=== PATIENT | female | born 1940 | race Caucasian/White ===

== ENCOUNTER 2018-05-18 14:25 | Outpatient (CLI) | payer MEDICARE | END 2018-05-18 14:26 | disposition home or self-care (01) | LOC: BICMAMMO 14:25 | PROVIDERS: ATTEND Obstetrics & Gynecology | DX: Z12.31 Encounter for screening mammogram for malignant neoplasm of breast (principal); Z85.3 Personal history of malignant neoplasm of breast | CPT/HCPCS: 77063; 77067 ==

== ENCOUNTER 2020-06-10 13:30 | Outpatient (CLI) | payer MEDICARE ==
--- NOTE | 2020-06-10 14:36 | MMO ---
Bilateral MAMMO Bilat Screen [facility]. CLINICAL HISTORY: Patient is 79 years old and is seen for screening. The patient has the following family history of breast cancer: mother, at age 70, malignant (generic). The patient has a history of malignant (generic) at age 69. 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 VIEWS: The views performed were: bilateral craniocaudal with tomosynthesis and bilateral mediolateral oblique with tomosynthesis. FILMS COMPARED: The present examination has been compared to prior imaging studies performed at [facility] on 05/18/2018, and at [facility] on 02/18/2015, 02/19/2016 and 03/09/2017. This study has been interpreted with the assistance of computer-aided detection. MAMMOGRAM FINDINGS: There are scattered fibroglandular densities. There are stable post operative changes seen in the right breast. There are no suspicious masses, suspicious calcifications, or new areas of architectural distortion. IMPRESSION: THERE IS NO MAMMOGRAPHIC EVIDENCE OF MALIGNANCY. A ROUTINE FOLLOW-UP MAMMOGRAM IN 1 YEAR IS RECOMMENDED. THE RESULTS OF THIS EXAM WERE SENT TO THE PATIENT. ACR BI-RADS Category 2 - Benign finding MAMMOGRAPHY NOTE: 1. A negative mammogram report should not delay a biopsy if a dominant of clinically suspicious mass is present. 2. Approximately 10% to 15% of breast cancers are not detected by mammography. 3. Adenosis and dense breasts may obscure an underlying neoplasm. Reported by: VALDO LOPEZ MD Electonically Signed: [id number]
== END 2020-06-10 13:31 | disposition home or self-care (01) ==
LOC: BICMAMMO 13:30
PROVIDERS: ATTEND Internal Medicine
DX: Z12.31 Encounter for screening mammogram for malignant neoplasm of breast (principal); Z85.3 Personal history of malignant neoplasm of breast; Z80.3 Family history of malignant neoplasm of breast
CPT/HCPCS: 77063; 77067

== ENCOUNTER 2021-11-25 10:24 | Day surgery (SDC) | payer MEDICARE ==
[2021-11-20 09:07] VITALS: BMI 29.7
[2021-11-25] MEDS ORDERED: Acetaminophen 500 MG TAB ONE (11:14)
[2021-11-25] MEDS ORDERED: Lidocaine 1% w/Epinephrine 1:100K 20 ML VIAL ONE (13:30)
[2021-11-25] MEDS ORDERED: Bupivacaine PF 0.5% 30 ML VIAL ONE (13:30)
[2021-11-25] MEDS ORDERED: Lidocaine 2% Jelly 5 ML TUBE ONE (13:30)
[2021-11-25] MEDS ORDERED: ceFAZolin (BATCH) 2 GM/100 ML BAG ONE (13:37)
[2021-11-25] MEDS ORDERED: Dexamethasone 20 MG/5 ML VIAL ONE (13:46)
[2021-11-25] MEDS ORDERED: Lidocaine 1% PF 5 ML VIAL ONE (13:46)
[2021-11-25] MEDS ORDERED: Succinylcholine 200 MG/10 ml SYRINGE FS ONE (13:46)
[2021-11-25] MEDS ORDERED: PROPOFOL 200 MG/20 ML VIAL ONE (13:46)
[2021-11-25] MEDS ORDERED: Ondansetron PF 4 MG/2 ML Vial ONE (13:46)
[2021-11-25] MEDS ORDERED: ePHEDrine 50 MG/ML VIAL ONE (13:46)
[2021-11-25] MEDS ORDERED: Propofol 1,000 MG/100 ML VIAL IV ONE (14:40)
[2021-11-25] MEDS ORDERED: PROPOFOL 20 ML ONE (14:40)
== END 2021-11-25 17:17 | disposition home or self-care (01) ==
LOC: SDC 10:24
PROVIDERS: ATTEND Specialist
PROC: 06BY3ZC Excision of Hemorrhoidal Plexus, Percutaneous Approach (ICD-10-PCS; principal; 2021-11-25)
DX: K64.4 Residual hemorrhoidal skin tags (principal); K64.8 Other hemorrhoids; K62.1 Rectal polyp; I10 Essential (primary) hypertension; Z85.3 Personal history of malignant neoplasm of breast; Z79.899 Other long term (current) drug therapy
CPT/HCPCS: 88304; J0690; J1100; J2405; J2704; J3490; S0020